=== PATIENT | female | born 1955 | race Caucasian/White ===

== ENCOUNTER 2017-09-26 14:10 | Emergency (ER) | payer SELFPAY ==
[2017-09-26 14:45] VITALS: BP 145/86
--- NOTE | 2017-09-26 14:53 | UC ---
Abdominal Pain Female HPI - HPI Summary HPI Summary: 61 year old female presents with complains of severe rlq pain and nausea. - History of Current Complaint Chief Complaint: UCAbdominalPain Stated Complaint: ABD PAIN,CHILLS,NAUSEA Time Seen by Provider: 09/26/17 14:47 Hx Obtained From: Patient Onset/Duration: Sudden Onset Severity Initially: Moderate Severity Currently: Moderate Pain Scale Used: 0-10 Numeric - 5 Location: Discrete At: RLQ Character: Aching, Sharp Alleviating Factor(s): Nothing Associated Signs and Symptoms: Positive: Negative Allergies/Adverse Reactions: Allergies Allergy/AdvReac Type Severity Reaction Status Date / Time Penicillins Allergy Severe Itching Verified 04/03/16 13:26 PMH/Surg Hx/FS Hx/Imm Hx Previously Healthy: Yes - Surgical History Surgical History: Yes Surgery Procedure, Year, and Place: back surg 2009 years ago, left foot ARTHROSCOPY - Family History Known Family History: Positive: None - Social History Alcohol Use: None Substance Use Type: None Smoking Status (MU): Light Every Day Tobacco Smoker Type: Cigarettes Amount Used/How Often: 1/4 Length of Time of Smoking/Using Tobacco: long time Have You Smoked in the Last Year: Yes - Immunization History Most Recent Influenza Vaccination: season Vaccination Up to Date: Yes Review of Systems Constitutional: Negative Skin: Negative Eyes: Negative ENT: Negative Respiratory: Negative Cardiovascular: Negative Gastrointestinal: Abdominal Pain, Nausea Genitourinary: Negative Motor: Negative Neurovascular: Negative Musculoskeletal: Negative Neurological: Negative Psychological: Negative All Other Systems Reviewed And Are Negative: Yes Physical Exam Triage Information Reviewed: Yes Vital Signs: Initial Vital Signs Temp 37.2 C 09/26/17 14:34 Pulse 85 09/26/17 14:34 Resp 18 09/26/17 14:34 BP 145/86 09/26/17 14:34 Pulse Ox 99 09/26/17 14:34 Vital Signs Reviewed: Yes Eye Exam: Normal ENT Exam: Normal Dental Exam: Normal Neck exam: Normal Neck: Positive: 1 Respiratory Exam: Normal Cardiovascular Exam: Normal Abdomen Description: Positive: Other: - rlq pain Musculoskeletal Exam: Normal Neurological Exam: Normal Psychological Exam: Normal Skin Exam: Normal Abd Pain Female Course/Dx - Differential Dx/Diagnosis Provider Diagnoses: rlq pain. nausea Discharge - Discharge Plan Condition: Stable Disposition: OTHER Discharge Disposition Comment: patient suggested to go to the er Referrals: Yuri Sweeney MD [Primary Care Provider] - Additional Instructions: patient suggested to go to the er for abdominal pain.
== END 2017-09-26 14:56 ==
LOC: UCEAST 14:10
DX: R10.31 Right lower quadrant pain (principal); R11.0 Nausea; Z88.0 Allergy status to penicillin
CPT/HCPCS: 99211; G0463

== ENCOUNTER 2017-09-26 15:22 | Emergency (ER) | payer BC ==
[2017-09-26 15:49] VITALS: BP 139/78
[2017-09-26 18:20] LABS: Hematocrit 44 % (35-47); Mean Corpuscular HGB Conc 34 g/dl (31-36); Mean Corpuscular Hemoglobin 31 pg (27-31); Mean Corpuscular Volume 92 fL (80-97); Mean Platelet Volume 7 um3 (7.4-10.4); Red Blood Count 4.79 10^6/ul (4.0-5.4); Red Cell Distribution Width 14 % (10.5-15); White Blood Count 10.4 10^3/ul (3.5-10.8)
[2017-09-26 18:21] LABS: Urine Bacteria Absent (Absent); Urine Bilirubin Negative (Negative); Urine Glucose Negative (Negative); Urine Nitrite Negative (Negative)
[2017-09-26 18:35] LABS: ALT 23 U/L (7-52); AST 22 U/L (13-39); Albumin 4.5 g/dL (3.2-5.2); Alkaline Phosphatase 47 U/L (34-104); Anion Gap 7 mmol/L (2-11); BUN/Creatinine Ratio 10.9 (8-20); Blood Urea Nitrogen 11 mg/dL (6-24); C Reactive Protein 2.26 mg/L (< 5.00); CO2 Carbon Dioxide 29 mmol/L (22-32); Calcium 9.9 mg/dL (8.6-10.3); Chloride 103 mmol/L (101-111); EGFR African American 71.9 (>60); EGFR Non-African American 55.9 (>60); Glucose 112 mg/dL (70-100); Lipase < 10 U/L (11.0-82.0); Sodium 139 mmol/L (133-145); Total Protein 7.5 g/dL (6.4-8.9)
--- NOTE | 2017-09-26 18:35 | RAD ---
INDICATION: Right flank pain COMPARISON: CT July 13, 2012 TECHNIQUE: Noncontrast axial source images were acquired from the level hemidiaphragms to the symphysis pubis as part of CT imaging for renal stone. Lung bases: The lung bases are clear. Liver: The liver is enlarged with findings of hepatic steatosis. Noncontrast imaging shows no evidence of a hepatic mass or ductal dilatation. Gallbladder: There is a solitary calcified gallstone. There may be a small amount of gallbladder sludge. There is no thickening gallbladder wall or pericholecystic fluid. Spleen: The spleen is normal in size. The noncontrast CT appearance is normal. Pancreas: Noncontrast imaging shows no pancreatic mass or ductal dilitation. Adrenal glands: No masses are identified. Kidneys/Bladder: There is no evidence of nephrolithiasis or CT evidence of hydronephrosis. Noncontrast imaging shows no evidence of a renal mass. The bladder is unremarkable.. Adenopathy: There is no evidence of intraperitoneal or retroperitoneal adenopathy. Evaluation is limited without oral contrast. Fluid collections: There are no free or localized fluid collections. Vessels: The aorta and iliac vessels are normal in caliber. There are no significant atherosclerotic changes. The IVC appears normal Pelvic organs: The uterus and adnexa appear normal GI tract: Evaluation of the bowel is limited without oral contrast. The upper GI tract is unremarkable. There are no obstructive findings. There are scant colonic diverticula. The appendix is visualized and appears normal. Soft tissues: No soft tissue abnormalities of the extraperitoneal abdomen or pelvis are identified. Osseous structures: There are no acute osseous findings. IMPRESSION: 1. Hepatomegaly with hepatic steatosis. 2. Cholelithiasis. 3. No CT evidence of urolithiasis.
--- NOTE | 2017-09-26 19:49 | ED ---
Vinh Wilkinson Alfonso, scribed for Marc Cardenas MD on 09/26/17 at 1858 . Abdominal Pain/Female - HPI Summary HPI Summary: This patient is a 61 year old F presenting to [facility] with a chief complaint of intermittent right pelvic pain gradually worsening since 1 day ago. She rates the pain 7/10 in severity. Symptoms aggravated by nothing. Symptoms alleviated by nothing. Patient reports nausea. Patient denies urinary sx, loss of appetite , and bowel sx. - History of Current Complaint Chief Complaint: EDAbdPain Stated Complaint: ABD PAIN, NAUSEA, SENT BY CC Time Seen by Provider: 09/26/17 17:46 Hx Obtained From: Patient Onset/Duration: Gradual Onset, Lasting Days - Since 1 day ago, Still Present Timing: Intermittent Episode Lasting Severity Currently: Moderate Pain Intensity: 7 Pain Scale Used: 0-10 Numeric Location: Other - Right pelvis Radiates: No Aggravating Factor(s): Nothing Alleviating Factor(s): Nothing Associated Signs and Symptoms: Positive: Other: - Patient reports nausea. Patient denies urinary sx, loss of appetite, and bowel sx. Allergies/Adverse Reactions: Allergies Allergy/AdvReac Type Severity Reaction Status Date / Time Penicillins Allergy Severe Itching Verified 04/03/16 13:26 PMH/Surg Hx/FS Hx/Imm Hx Endocrine/Hematology History: Denies: Hx Diabetes, Hx Thyroid Disease Cardiovascular History: Denies: Hx Hypertension, Hx Pacemaker/ICD Respiratory History: Denies: Hx Asthma, Hx Chronic Obstructive Pulmonary Disease (COPD) GI History: Reports: Hx Ulcer Musculoskeletal History: Denies: Hx Rheumatoid Arthritis, Hx Osteoporosis Sensory History: Denies: Hx Hearing Aid Psychiatric History: Denies: Hx Panic Disorder - Cancer History Cancer Type, Location and Year: denies - Surgical History Surgery Procedure, Year, and Place: back surg 2009 years ago, left foot ARTHROSCOPY Infectious Disease History: No Infectious Disease History: Reports: Hx Hepatitis - not sure if b or c many years ago Denies: Hx Clostridium Difficile, Hx Human Immunodeficiency Virus (HIV), Hx of Known/Suspected MRSA, Hx Shingles, Hx Tuberculosis, Hx Known/Suspected VRE, Hx Known/Suspected VRSA, History Other Infectious Disease, Traveled Outside the [place] in Last 30 Days - Family History Known Family History: Positive: Other - Mother had Cancer. Father had Non- Hodgkin Lymphoma - Social History Alcohol Use: None Substance Use Type: Reports: None Smoking Status (MU): Light Every Day Tobacco Smoker Type: Cigarettes Amount Used/How Often: 1/4 Length of Time of Smoking/Using Tobacco: long time Have You Smoked in the Last Year: Yes Review of Systems Negative: Fever Positive: Abdominal Pain - Right pelvic pain, Nausea, Other - Loss of appetite; negative bowel sx Positive: no symptoms reported All Other Systems Reviewed And Are Negative: Yes Physical Exam - Summary Physical Exam Summary: Appearance: Well-appearing, no pain distress Skin: Warm, dry, color reflects adequate perfusion Head/face: Nml head/face Eyes: Nml eyes ENT: Nml ENT Neck: Supple, non-tender Respiratory: CTA, breath sound present Cardiovascular: RRR Abdomen: Abd soft, Mild LLQ tenderness Bowel: Bowel sounds present Musculoskeletal: Nml musculoskeletal Neurological: Nml neuro, sensory/motor intact, A&Ox3, CN Intact II-III Psychiatric: Nml psychiatric, affect/mood appropriate Triage Information Reviewed: Yes Vital Signs On Initial Exam: Initial Vitals Temp Pulse Resp BP Pulse Ox 98.7 F 88 20 139/78 96 09/26/17 15:46 09/26/17 15:46 09/26/17 15:46 09/26/17 15:46 09/26/17 15:46 Vital Signs Reviewed: Yes - [place] Coma Scale Coma Scale Total: 15 Diagnostics - Vital Signs Vital Signs Temp Pulse Resp BP Pulse Ox 09/26/17 15:46 98.7 F 88 20 139/78 96 - Laboratory Lab Results: Lab Results 09/26/17 09/26/17 09/26/17 Range/Units 17:20 18:10 18:10 WBC 10.4 (3.5-10.8) 10^3/ul RBC 4.79 (4.0-5.4) 10^6/ul Hgb 15.0 (12.0-16.0) g/dl Hct 44 (35-47) % MCV 92 (80-97) fL MCH 31 (27-31) pg MCHC 34 (31-36) g/dl RDW 14 (10.5-15) % Plt Count 270 (150-450) 10^3/ul MPV 7 L (7.4-10.4) um3 Neut % (Auto) 60.0 (38-83) % Lymph % (Auto) 33.8 (25-47) % [place] % (Auto) 4.2 (1-9) % Eos % (Auto) 1.1 (0-6) % Baso % (Auto) 0.9 (0-2) % Absolute Neuts (auto) 6.2 (1.5-7.7) 10^3/ul Absolute Lymphs (auto) 3.5 (1.0-4.8) 10^3/ul Absolute Monos (auto) 0.4 (0-0.8) 10^3/ul Absolute Eos (auto) 0.1 (0-0.6) 10^3/ul Absolute Basos (auto) 0.1 (0-0.2) 10^3/ul Absolute Nucleated RBC 0.01 10^3/ul Nucleated RBC % 0.1 Sodium 139 (133-145) mmol/L Potassium 4.0 (3.5-5.0) mmol/L Chloride 103 (101-111) mmol/L Carbon Dioxide 29 (22-32) mmol/L Anion Gap 7 (2-11) mmol/L BUN 11 (6-24) mg/dL Creatinine 1.01 H (0.51-0.95) mg/dL Est GFR ( Amer) 71.9 (>60) Est GFR (Non-Af Amer) 55.9 (>60) BUN/Creatinine Ratio 10.9 (8-20) Glucose 112 H (70-100) mg/dL Lactic Acid (0.5-2.0) mmol/L Calcium 9.9 (8.6-10.3) mg/dL Total Bilirubin 1.10 H (0.2-1.0) mg/dL AST 22 (13-39) U/L ALT 23 (7-52) U/L Alkaline Phosphatase 47 (34-104) U/L C-Reactive Protein 2.26 (< 5.00) mg/L Total Protein 7.5 (6.4-8.9) g/dL Albumin 4.5 (3.2-5.2) g/dL Globulin 3.0 (2-4) g/dL Albumin/Globulin Ratio 1.5 (1-3) Lipase < 10 L (11.0-82.0) U/L Urine Color Colorless Urine Appearance Clear Urine pH 7.0 (5-9) Ur Specific [place] 1.002 L (1.010-1.030) Urine Protein Negative (Negative) Urine Ketones Negative (Negative) Urine Blood 2+ H (Negative) Urine Nitrate Negative (Negative) Urine Bilirubin Negative (Negative) Urine Urobilinogen Negative (Negative) Ur Leukocyte Esterase Negative (Negative) Urine WBC (Auto) Trace(0-5/hpf) (Absent) Urine RBC (Auto) Trace(0-2/hpf) (Absent) Ur Squamous Epith Cells Present H (Absent) Urine Bacteria Absent (Absent) Urine Glucose Negative (Negative) 09/26/17 Range/Units 18:10 WBC (3.5-10.8) 10^3/ul RBC (4.0-5.4) 10^6/ul Hgb (12.0-16.0) g/dl Hct (35-47) % MCV (80-97) fL MCH (27-31) pg MCHC (31-36) g/dl RDW (10.5-15) % Plt Count (150-450) 10^3/ul MPV (7.4-10.4) um3 Neut % (Auto) (38-83) % Lymph % (Auto) (25-47) % [place] % (Auto) (1-9) % Eos % (Auto) (0-6) % Baso % (Auto) (0-2) % Absolute Neuts (auto) (1.5-7.7) 10^3/ul Absolute Lymphs (auto) (1.0-4.8) 10^3/ul Absolute Monos (auto) (0-0.8) 10^3/ul Absolute Eos (auto) (0-0.6) 10^3/ul Absolute Basos (auto) (0-0.2) 10^3/ul Absolute Nucleated RBC 10^3/ul Nucleated RBC % Sodium (133-145) mmol/L Potassium (3.5-5.0) mmol/L Chloride (101-111) mmol/L Carbon Dioxide (22-32) mmol/L Anion Gap (2-11) mmol/L BUN (6-24) mg/dL Creatinine (0.51-0.95) mg/dL Est GFR ( Amer) (>60) Est GFR (Non-Af Amer) (>60) BUN/Creatinine Ratio (8-20) Glucose (70-100) mg/dL Lactic Acid 1.4 (0.5-2.0) mmol/L Calcium (8.6-10.3) mg/dL Total Bilirubin (0.2-1.0) mg/dL AST (13-39) U/L ALT (7-52) U/L Alkaline Phosphatase (34-104) U/L C-Reactive Protein (< 5.00) mg/L Total Protein (6.4-8.9) g/dL Albumin (3.2-5.2) g/dL Globulin (2-4) g/dL Albumin/Globulin Ratio (1-3) Lipase (11.0-82.0) U/L Urine Color Urine Appearance Urine pH (5-9) Ur Specific [place] (1.010-1.030) Urine Protein (Negative) Urine Ketones (Negative) Urine Blood (Negative) Urine Nitrate (Negative) Urine Bilirubin (Negative) Urine Urobilinogen (Negative) Ur Leukocyte Esterase (Negative) Urine WBC (Auto) (Absent) Urine RBC (Auto) (Absent) Ur Squamous Epith Cells (Absent) Urine Bacteria (Absent) Urine Glucose (Negative) Result Diagrams: 09/26/17 18:10 09/26/17 18:10 Lab Statement: Any lab studies that have been ordered have been reviewed, and results considered in the medical decision making process. - CT Abdomen/Pelvis CT Interpretation Completed By: Radiologist - 1. Hepatomegaly with hepatic steatosis. 2. Cholelithiasis. 3. No CT evidence of urolithiasis. ED physician has reviewed this radiology report and agrees. Abdominal Pain Fem Course/Dx - Course Course Of Treatment: Ms. Hanson has been having short, transient RLQ pains for about 24 hours. She was nontender to exam and her W/U was remarkable only for a gallstone and a very slightly elevated bilirubin. We talked about the differential including early gallbladder issues and she will return for any worsening. - Diagnoses Provider Diagnoses: Abdominal pain Discharge - Discharge Plan Condition: Stable Disposition: HOME Patient Education Materials: Abdominal Pain (ED) Referrals: Yuri Sweeney MD [Primary Care Provider] - 3 Days Additional Instructions: RETURN TO THE EMERGENCY DEPARTMENT FOR CHANGING OR WORSENING SYMPTOMS. The documentation as recorded by the Vinh miller Alfonso accurately reflects the service I personally performed and the decisions made by me, Marc Cardenas MD.
== END 2017-09-26 19:08 | disposition home or self-care (01) ==
LOC: ED 15:22
DX: R10.2 Pelvic and perineal pain (principal); R10.9 Unspecified abdominal pain; R11.0 Nausea; R63.0 Anorexia; F17.210 Nicotine dependence, cigarettes, uncomplicated
CPT/HCPCS: 36415; 74176; 80053; 81003; 81015; 83605; 83690; 85025; 86140; 99283

== ENCOUNTER 2017-10-23 07:03 | Emergency (ER) | payer BC ==
[2017-10-23 07:17] VITALS: BP 139/87
--- NOTE | 2017-11-10 09:20 | UC ---
Nguyễn Wilkinson Tiffany, scribed for Bianka Yu DO on 10/23/17 at 0734 . Upper Extremity HPI - HPI Summary HPI Summary: This patient is a 61 year old F presenting to [facility] with a chief complaint of right shoulder pain since last week that worsened the last two nights. The pain is described as an ache. The patient rates the pain 3/10 in severity. Symptoms aggravated by movement and sleeping on the shoulder. Symptoms alleviated by heat. Patient denies injury to the right shoulder, neck pain, numbness, weakness , tinglingness, shortness of breath, cough, abdominal pain, fever, diaphoresis, chills, swelling and erythema. - History of Current Complaint Chief Complaint: UCUpperExtremity Stated Complaint: SHOULDER PAIN Time Seen by Provider: 10/23/17 07:19 Hx Obtained From: Patient Onset/Duration: Lasting Weeks - One week, Still Present, Worse Since - Two nights ago Pain Intensity: 3 Pain Scale Used: 0-10 Numeric Character: Aching Aggravating Factor(s): Movement, Other - Sleeping on the R shoulder Alleviating Factor(s): Heat Associated Signs And Symptoms: Positive: Other - NEGATIVE: injury to the right shoulder, neck pain, numbness, weakness, tinglingness, shortness of breath, cough, abdominal pain, fever, diaphoresis, chills, swelling and erythema - Allergies/Home Medications Allergies/Adverse Reactions: Allergies Allergy/AdvReac Type Severity Reaction Status Date / Time Penicillins Allergy Severe Itching Verified 10/23/17 07:10 PMH/Surg Hx/FS Hx/Imm Hx Previously Healthy: No Other Endocrine History: NEGATIVE: Diabetes, thyroid disease Other Respiratory History: NEGATIVE: COPD, asthma GI/ History: Ulcer - Surgical History Surgical History: Yes Surgery Procedure, Year, and Place: back surg 2009 years ago, left foot ARTHROSCOPY - Family History Known Family History: Positive: Other - Mother had Cancer. Father had Non- Hodgkin Lymphoma - Social History Alcohol Use: None Substance Use Type: None Smoking Status (MU): Light Every Day Tobacco Smoker Type: Cigarettes Amount Used/How Often: 10cig/ day Length of Time of Smoking/Using Tobacco: long time Have You Smoked in the Last Year: Yes - Immunization History Most Recent Influenza Vaccination: season Vaccination Up to Date: Yes Review of Systems Constitutional: Negative - fever, diaphoresis, chills, and erythema Respiratory: Negative - Shortness of breath, cough Gastrointestinal: Negative - Abdominal pain Musculoskeletal: Negative - injury to the right shoulder, neck pain, swelling to the right shoulder, Other: - Right shoulder pain Neurological: Negative - Numbness, weakness, tinglingness All Other Systems Reviewed And Are Negative: Yes Physical Exam Triage Information Reviewed: Yes Vital Signs: Initial Vital Signs Temp 97.7 F 10/23/17 07:11 Pulse 90 10/23/17 07:11 Resp 16 10/23/17 07:11 BP 139/87 10/23/17 07:11 Pulse Ox 97 10/23/17 07:11 Vital Signs Reviewed: Yes - Additional Comments Appearance: Well-Appearing, No Pain Distress, Well-Nourished, Obsese Eyes: conjunctiva clear, no discharge ENT: Hearing grossly normal, normal voice Neck: Normal, Supple Respiratory/Lung Sounds: Lungs clear, Normal breath sounds, No respiratory distress, No accessory muscle use Cardiovascular: RRR, No murmur Abdomen: Nontender, Soft, no guarding, not distended Bowel Sounds: Present Musculoskeletal: Normal inspection except for a 2 cm by 1 cm lesion underneath the clavicle that looked like an abrasion but patient says that the abrasion has been there for a number of years and she denies change in size, shape, or color; Right shoulder is diffusely tender to palpation, worst over tissues of soft anterior shoulder and subscapularis; Restricted active ROM in all planes; Restricted passive ROM; special tests of rotator cuff elicited pain but no weakness for subscapularis and infraspinatus Neurological: Alert, muscle tone normal Psychiatric: Normal, age appropriate behavior Skin: Normal, Warm, Dry, Normal color Upper Extremity Course/Dx - Course Course Of Treatment: Medications reviewed this visit. High blood pressure noted. The patient has been encouraged to quit smoking. Patient will be discharged. She was recommended to update her PCP. She was referred to physical therapy and osteopathic treatment. She was advised to keep her shoulder moving with shoulder exercises. The patient is agreeable with this plan. - Differential Dx/Diagnosis Provider Diagnoses: Adhesive capsulitis, shoulder pain, elevated blood pressure without diagnosis of hypertension Discharge - Discharge Plan Condition: Stable Disposition: HOME Prescriptions: traMADol TAB* [Ultram*] 50 mg PO Q8H PRN #14 tab MDD 3 TABS PRN Reason: Pain Patient Education Materials: Adhesive Capsulitis (ED), Shoulder Pain (ED) Referrals: Yuri Sweeney MD [Primary Care Provider] - 5 Days Additional Instructions: ULTRAM (tramadol hydrochloride): Ultram is an excellent drug for pain relief. It is not a narcotic, but it works in a similar way. Ultram can take up to two hours for full effect. Although not addicting, Ultram is best avoided in patients with a history of drug abuse. Ultram should not be used with alcohol, sleeping pills, or narcotics. If you're prone to seizures, Ultram can make you more likely to have a seizure. Ultram can be hazardous when combined with MAO-inhibitor antidepressants (such as Nardil or Parnate). Be sure your doctor is aware of all medicines you are taking. Persons with severe liver or kidney disease should increase the time between doses of Ultram. Discuss this with your doctor if you're uncertain. Side effects of Ultram can include dizziness, nausea, constipation, sleepiness, and itching. (These side effects are also seen with narcotic pain medicines.) Please call your doctor if you have other disturbing effects. WE HAVE GIVEN YOU A REFERRAL TO PHYSICAL THERAPY YOU MAY NEED A REFERRAL TO ORTHOPEDICS YOU WOULD LIKELY BENEFIT FROM OSTEOPATHIC MANIPULATION. WE RECOMMEND THAT YOU FIND AN OSTEOPATHIC PHYSICIAN IN YOUR AREA WHO DOES LYMPHATIC, MYOFACIAL AND VISCERAL WORK. Your blood pressure was elevated at this visit. That does not mean you have hypertension, it is probably due to your current condition. Please follow up with your primary care provider The documentation as recorded by the Nguyễn miller Tiffany accurately reflects the service I personally performed and the decisions made by , Bianka Yu DO.
== END 2017-10-23 08:17 | disposition home or self-care (01) ==
LOC: UCEAST 07:03
DX: M75.01 Adhesive capsulitis of right shoulder (principal); R03.0 Elevated blood-pressure reading, without diagnosis of hypertension; Z88.0 Allergy status to penicillin; F17.210 Nicotine dependence, cigarettes, uncomplicated
CPT/HCPCS: 99212; G0463

== ENCOUNTER 2018-08-30 07:06 | Emergency (ER) | payer BC ==
[2018-08-30 07:22] VITALS: BP 119/64
--- NOTE | 2018-08-30 08:15 | UC ---
Respiratory Complaint HPI - HPI Summary HPI Summary: c/o nasal congestion, cough and malaise for 2-3 days, her students with same symptoms, denies chills or fever, cough has some production of clear phlegm. No recent smoking, states she is a very occasional smoker. - History of Current Complaint Chief Complaint: UCGeneralIllness Stated Complaint: CHEST CONGESTION Time Seen by Provider: 08/30/18 07:11 Hx Obtained From: Patient ?: No Onset/Duration: Sudden Onset Timing: Constant Severity Initially: Moderate Severity Currently: Moderate Pain Intensity: 4 Character: Cough: Productive Alleviating Factors: Nothing Associated Signs And Symptoms: Positive: URI, Nasal Congestion - Risk Factors Pulmonary Embolism Risk Factors: Negative Pseudomonas Risk Factors: Negative Tuberculosis Risk Factors: Negative - Allergies/Home Medications Allergies/Adverse Reactions: Allergies Allergy/AdvReac Type Severity Reaction Status Date / Time Penicillins Allergy Severe Itching Verified 08/30/18 07:17 Home Medications: Home Medications Acetaminophen [Tylenol] 08/30/18 [History] PMH/Surg Hx/FS Hx/Imm Hx - Additional Past Medical History Additional PMH: insomnia, BD Previously Healthy: Yes Psychological History: Bipolar Disorder - Surgical History Surgical History: Yes Surgery Procedure, Year, and Place: back surg 2009 years ago, left foot ARTHROSCOPY - Family History Known Family History: Positive: Other - Mother had Cancer. Father had Non- Hodgkin Lymphoma - Social History Alcohol Use: None Substance Use Type: None Smoking Status (MU): Current Some Day Smoker Type: Cigarettes Amount Used/How Often: 10cig/ day Length of Time of Smoking/Using Tobacco: long time Have You Smoked in the Last Year: Yes - Immunization History Most Recent Influenza Vaccination: season Vaccination Up to Date: Yes Review of Systems ENT: Nasal Discharge, Sinus Congestion Respiratory: Cough All Other Systems Reviewed And Are Negative: Yes Physical Exam Triage Information Reviewed: Yes Appearance: Well-Appearing, No Pain Distress, Obese Vital Signs: Initial Vital Signs Temp 98 F 08/30/18 07:09 Pulse 88 08/30/18 07:09 Resp 18 08/30/18 07:09 BP 119/64 08/30/18 07:09 Pulse Ox 97 08/30/18 07:09 Vital Signs Reviewed: Yes Eyes: Positive: Conjunctiva Clear ENT: Positive: Hearing grossly normal, Pharynx normal, TMs normal, Uvula midline Neck: Positive: Supple, Nontender, No Lymphadenopathy Respiratory: Positive: Chest non-tender, Lungs clear, Normal breath sounds, No respiratory distress Cardiovascular: Positive: RRR, No Murmur, Pulses Normal, Brisk Capillary Refill Abdomen Description: Positive: Nontender, No Organomegaly, Soft Bowel Sounds: Positive: Present UC Diagnostic Evaluation - Laboratory O2 Sat by Pulse Oximetry: 97 Respiratory Course/Dx - Course Course Of Treatment: patient's physical exam suggestive of viral URI, continue supportive care with fluids, rest and tylenol as needed, start tessalon as needed for cough at night - Differential Dx/Diagnosis Provider Diagnoses: URI viral Discharge - Sign-Out/Discharge Documenting (check all that apply): Patient Departure All imaging exams completed and their final reports reviewed: No Studies - Discharge Plan Condition: Stable Disposition: HOME Prescriptions: Benzonatate CAP* [Tessalon 100 MG CAP*] 100 mg PO TID PRN 7 Days #21 cap PRN Reason: Cough Patient Education Materials: Benzonatate (By mouth), Upper Respiratory Infection (ED) Referrals: Yuri Sweeney MD [Primary Care Provider] - Additional Instructions: please follow up with your primary care in a week - Billing Disposition and Condition Condition: STABLE Disposition: Home
== END 2018-08-30 08:12 | disposition home or self-care (01) ==
LOC: UCEAST 07:06
DX: J06.9 Acute upper respiratory infection, unspecified (principal); Z88.0 Allergy status to penicillin; Z72.0 Tobacco use
CPT/HCPCS: 99212; G0463